=== PATIENT | male | born 1985 | race Caucasian/White ===

== ENCOUNTER 2019-04-10 13:35 | Emergency (ER) | payer SELFPAY ==
[~2019-04-10] VITALS: Ht 177.8 cm; Wt 90.0 kg
[2019-04-10 14:52] VITALS: BP 144/67
[2019-04-10] MEDS ORDERED: PERCOCET 10/31 COMBO PO (14:56)
== END 2019-04-10 15:07 | disposition home or self-care (01) | DRG 563 ==
LOC: ED 13:35
PROC: 2W3CX1Z Immobilization of Right Lower Arm using Splint (ICD-10-PCS; principal; 2019-04-10)
DX: S52.501A Unspecified fracture of the lower end of right radius, initial encounter for closed fracture (principal); W17.89XA Other fall from one level to another, initial encounter